=== PATIENT | male | born 1950 | race African-American/Black ===

== ENCOUNTER 2020-04-05 19:12 | Emergency (ER) | payer MEDICAID, MEDICARE, OTHER ==
[~2020-04-05 19:12] MED LIST: TYLENOL325 MG ORAL
[2020-04-05] MEDS ORDERED: HYDROcodone/Acetamin 5/325 tab ORAL ONE (19:30)
[2020-04-05] MEDS ORDERED: Tetanus/Diptheria/Pertussis IM ONE (19:30)
[2020-04-05] MEDS ORDERED: NORCO 5-325 TA1 EAC1 ORAL (20:36)
== END 2020-04-05 20:49 | disposition home or self-care (01) ==
DX: S62.92XA Unspecified fracture of left hand, initial encounter for closed fracture (principal); S62.314A Displaced fracture of base of fourth metacarpal bone, right hand, initial encounter for closed fracture; S62.316A Displaced fracture of base of fifth metacarpal bone, right hand, initial encounter for closed fracture; S62.394A Other fracture of fourth metacarpal bone, right hand, initial encounter for closed fracture; Y93.55 Activity, bike riding; Z23 Encounter for immunization

== ENCOUNTER 2020-04-06 16:46 | Inpatient (IN) | payer MEDICARE, OTHER ==
[~2020-04-06] VITALS: Ht 185.4 cm; Wt 81.6 kg
[~2020-04-06 16:46] MED LIST changes: +NORCO 5-325 TA1 EAC1 ORAL
[2020-04-06 17:10] VITALS: BP 124/72
[2020-04-06] MEDS ORDERED: oxyCODONE HCL/Acetaminophen 5/325mg ORAL ONE (17:15)
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
[2020-04-06] MEDS ORDERED: Bacitracin Oint UD TOPIC ONE (17:45)
[2020-04-06] MEDS ORDERED: D5 1/2NS w/KCl 20mEq 1,000 ML IV SCH (17:45)
[2020-04-06] MEDS ORDERED: Morphine Sulfate 2mg/ml Inj(IV/IM USE ONLY) IVP ONE (17:45)
[2020-04-06 18:16] LABS: BASOPHILS % (AUTO) 0.7 % (0.0-2.0); EOSINOPHILS % (AUTO) 0.9 % (0.0-3.0); HEMATOCRIT 46.3 % (42.0-52.0); HEMOGLOBIN 15.3 G/DL (14.2-18.0); LYMPHOCYTES % (AUTO) 17.1 % (20.0-45.0); MEAN CORPUSCULAR VOLUME 88 FL (80-99); MONOCYTES % (AUTO) 10.1 % (1.0-10.0); NEUTROPHILS % (AUTO) 71.2 % (45.0-75.0); PLATELET COUNT 306 K/UL (150-450); RED BLOOD COUNT 5.28 M/UL (4.70-6.10); RED CELL DISTRIBUTION WIDTH 13.5 % (11.6-14.8); WHITE BLOOD COUNT 11.6 K/UL (4.8-10.8)
[2020-04-06 18:31] LABS: ANION GAP 8 mmol/L (5-15); BLOOD UREA NITROGEN 16 mg/dL (7-18); CARBON DIOXIDE 29 MMOL/L (21-32); CHLORIDE 106 MMOL/L (98-107); CREATININE 1.5 MG/DL (0.55-1.30); POTASSIUM 4.1 MMOL/L (3.5-5.1); SODIUM 142 MMOL/L (136-145)
[2020-04-06 18:36] LABS: ALANINE AMINOTRANSFERASE 45 U/L (12-78); ALBUMIN 4.3 G/DL (3.4-5.0); ALBUMIN/GLOBULIN RATIO 1.1 (1.0-2.7); ALKALINE PHOSPHATASE 64 U/L (46-116); ASPARTATE AMINO TRANSFERASE 42 U/L (15-37); BILIRUBIN,TOTAL 0.7 MG/DL (0.2-1.0)
[2020-04-06 19:30] VITALS: BP 145/85
[2020-04-06] MEDS ORDERED: Morphine Sulfate 4mg/ml Inj (IV USE ONLY) IVP ONE (19:30)
[2020-04-06] MEDS: HYDROcodone/Acetamin 5/325 tab ORAL PRN (21:16)
[2020-04-06] MEDS: Heparin 5000 units/ml inj SUBQ SCH ×2 (21:16→22:00)
[2020-04-06] MEDS: Morphine Sulfate 2mg/ml Inj(IV/IM USE ONLY) IVP PRN (23:46)
[2020-04-07] VITALS: BP 105/64
[2020-04-07 04:00] VITALS: BP 110/69
[2020-04-07] MEDS: HYDROcodone/Acetamin 5/325 tab ORAL PRN ×2 (04:37→09:51)
[2020-04-07] MEDS: Heparin 5000 units/ml inj SUBQ SCH ×3 (06:00→22:00)
[2020-04-07] MEDS: Morphine Sulfate 2mg/ml Inj(IV/IM USE ONLY) IVP PRN ×2 (06:37→22:57)
[2020-04-07 08:00] VITALS: BP 123/70
--- NOTE | 2020-04-07 10:19 | Consultation ---
Consult Note Consult Note Patient seen evaluated. Right 4th and and 5th metacarpal fracture Displaced, requires hand specialist surgical consult for definitive fixation. This can be done as outpatient if patient stable for discharge. Continue Splint. Left [place] lunate avulsion fracture, stable. Splint Removed and instructed on gentle ROM of the wrist and fingers. Full Consult Dictated. Jeet Golden MD Apr 07, 2020 10:19
[2020-04-07 12:00] VITALS: BP 112/78
[2020-04-07 16:00] VITALS: BP 119/72
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
[2020-04-07 20:00] VITALS: BP 133/73
[2020-04-08] VITALS: BP 129/72
[2020-04-08] MEDS: HYDROcodone/Acetamin 5/325 tab ORAL PRN ×3 (00:03→22:14)
[2020-04-08] MEDS: Heparin 5000 units/ml inj SUBQ SCH ×4 (06:00→21:48)
[2020-04-08 08:00] VITALS: BP 126/76
[2020-04-08 12:00] VITALS: BP 130/84
[2020-04-08 16:00] VITALS: BP 146/77
--- NOTE | 2020-04-08 17:15 | Progress Note ---
DATE: 04/07/2020 The patient had ortho consult yesterday, was recommended hand surgery. Called hand surgeon here, has been not heard, and there is no routine . The patient's pain is improving. Swelling is better. PHYSICAL EXAMINATION: VITAL SIGNS: Blood pressure is 146/77, pulse 59. No fever. CHEST: Bilaterally clear. CARDIOVASCULAR: Regular rhythm. ABDOMEN: Soft. EXTREMITIES: Lunar fracture, right hand. Left muscle contusion. ASSESSMENT AND PLAN: 1. Fall. 2. Syncope. 3. Injury of both hands. The patient left a message to Dr. Jl Day for hand surgery. Discussed with Dr. Golden. Continue current medical treatment. Discharge plan tomorrow. We will discuss with counter caser for assigning him to a hand surgeon as an outpatient for healthcare plan. Rene Davies M.D. DR: PORFIRIO JOB#: [id number] CC:
[2020-04-08] MEDS ORDERED: Isovue-300 100ml vial INJ PRN (18:15)
[2020-04-08 20:00] VITALS: BP 135/78
[2020-04-09] VITALS: BP 154/79
[2020-04-09] MEDS: Morphine Sulfate 2mg/ml Inj(IV/IM USE ONLY) IVP PRN (01:38)
[2020-04-09 04:00] VITALS: BP 128/75
[2020-04-09] MEDS: Heparin 5000 units/ml inj SUBQ SCH ×2 (06:43→14:00)
[2020-04-09 08:00] VITALS: BP 139/70
--- NOTE | 2020-04-09 09:13 | Diagnostic Imaging Report ---
Indications: Syncope, trauma Technique: Spiral acquisitions obtained through the brain. Angled axial and coronal 5 x 5 mm slices were reconstructed. Total dose length product 1072 mGycm. CTDI vol(s) 53 mGy. Dose reduction achieved using automated exposure control Comparison: None. Findings: No acute intracranial hemorrhage or edema. No mass effect or midline shift. Normal philippe-white differentiation. Normal size ventricles and extra-axial CSF spaces. The mastoids are clear. The sinuses are clear. The calvarium is intact. Visualized orbits are unremarkable. There is a small area of encephalomalacia in the right cerebellar hemisphere. 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
[2020-04-09] MEDS ORDERED: IBUPROFEN600 M1 ORAL (10:15)
[2020-04-09] MEDS ORDERED: TRAMADOL HCL50 MG ORAL (10:16)
[2020-04-09 12:00] VITALS: BP 149/77
[2020-04-09] MEDS: HYDROcodone/Acetamin 5/325 tab ORAL PRN (14:05)
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
[2020-04-09 16:00] VITALS: BP 143/86
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
== END 2020-04-09 18:55 | disposition home health service (06) | DRG 563 ==
LOC: EMR 17:10 → 3E 19:05 → EDBEDREQ 19:44
PROC: 0HQFXZZ Repair Right Hand Skin, External Approach (ICD-10-PCS; principal; 2020-04-06)
DX: S62.316A Displaced fracture of base of fifth metacarpal bone, right hand, initial encounter for closed fracture (principal); S06.0X9A Concussion with loss of consciousness of unspecified duration, initial encounter; S62.122A Displaced fracture of lunate [semilunar], left wrist, initial encounter for closed fracture; S62.334A Displaced fracture of neck of fourth metacarpal bone, right hand, initial encounter for closed fracture; V19.88XA Pedal cyclist (driver) (passenger) injured in other specified transport accidents, initial encounter; Y92.414 Local residential or business street as the place of occurrence of the external cause
CPT/HCPCS: 36415; 70450; 80053; 85025; 85610; 85730; 86850; 86900; 86901; 96365; 96375; 96376; 99285; J2405